=== PATIENT | male | born 1970 | race African-American/Black ===

== ENCOUNTER 2022-12-14 20:26 | Emergency (ER) | payer SELFPAY ==
[2022-12-14 21:02] LABS: ALT (SGPT) 32 U/L (8-55); AST (SGOT) 37 U/L (5-34); Albumin 4.1 g/dL (3.5-5.0); Alkaline Phosphatase 69 U/L (40-110); Anion Gap 17 mmol/L (10-20); BUN (Urea Nitrogen) 22 mg/dL (8.9-20.6); Bilirubin, Total 0.2 mg/dL (0.2-1.2); CK (CPK) 329 U/L (30-200); Calc. Creatinine Clearance 0 mL/min (70-130); Calcium 9.1 mg/dL (7.8-10.44); Carbon Dioxide 23 mmol/L (22-29); Chloride 105 mmol/L (98-107); Estimated GFR 64; Globulin 3.5 g/dL (2.4-3.5); Glucose 81 mg/dL (70-105); Potassium 3.5 mmol/L (3.5-5.1); Protein, Total 7.6 g/dL (6.0-8.3); Sodium 141 mmol/L (136-145)
[2022-12-14 21:03] LABS: Hemoglobin 11.8 g/dL (13.5-17.5); Mean Corpuscular HGB CONC 34.9 g/dL (32.0-36.0); Mean Corpuscular Hemoglobin 30.6 pg (27.0-33.0); Mean Corpuscular Volume 87.6 fl (81.2-95.1); Mean Platelet Volume 8.8 fl (7.4-10.4); Platelet Count 263 10x3/uL (150-450); Red Blood Cell (RBC) Count 3.86 10x6/uL (4.32-5.72)
[2022-12-14 21:08] LABS: MDiff Complete? YES; Manual Diff?? YES
[2022-12-14 21:32] LABS: Eosinophils 1 % (0-10); Lymphocytes 73 % (21-51); Monocytes 5 % (0-10); Neutrophil 12 % (42-75); Reactive Lymphocytes 9 % (0-10)
[2022-12-14 21:33] LABS: Diff Comment (RBC Morph SCRN) NORMAL; Platelet Morphology Comment Appears Adequate
== END 2022-12-14 21:36 | disposition home or self-care (01) ==
LOC: CSHERS 20:26
DX: F14.10 Cocaine abuse, uncomplicated (principal); F10.129 Alcohol abuse with intoxication, unspecified; F12.10 Cannabis abuse, uncomplicated; I11.0 Hypertensive heart disease with heart failure; I50.9 Heart failure, unspecified; F17.210 Nicotine dependence, cigarettes, uncomplicated; Y90.9 Presence of alcohol in blood, level not specified
CPT/HCPCS: 80053; 82550; 84484; 85025; 93005; 96360

== ENCOUNTER 2022-12-25 15:02 | Emergency (ER) | payer SELFPAY ==
[2022-12-25] MEDS ORDERED: Lidocaine 1% w/Epinephrine 1:200K 30 ML VIAL ONE (16:02)
[2022-12-25] MEDS ORDERED: Boostrix 0.5 ML (Tdap) VIAL (>/=7 yrs of age) ONE (16:02)
== END 2022-12-25 17:15 | disposition home or self-care (01) ==
LOC: CSHERS 15:02
DX: S01.511A Laceration without foreign body of lip, initial encounter (principal); I11.0 Hypertensive heart disease with heart failure; I50.9 Heart failure, unspecified; F17.210 Nicotine dependence, cigarettes, uncomplicated; Z23 Encounter for immunization; Y04.0XXA Assault by unarmed brawl or fight, initial encounter
CPT/HCPCS: 12051; 90471; 90715

== ENCOUNTER 2024-04-18 15:38 | Emergency (ER) | payer OTHER, SELFPAY ==
[2024-04-18] MEDS ORDERED: Lorazepam 2 MG/ML VIAL ONE (16:06)
[2024-04-18] MEDS ORDERED: Aspirin Chewable 81 MG TAB ONE (16:06)
[2024-04-18 16:46] LABS: #Basophils 0.02 10x3/uL (0.0-0.2); #Eosinphils 0.07 10x3/uL (0.0-0.5); #Monocytes 0.34 10x3/uL (0.0-1.1); #Neutrophils 1.36 10x3/uL (1.5-8.4); %Basophils 0.7 % (0.0-2.0); %Eosinophils 2.3 % (0.0-6.0); %Lymphocytes 40.8 % (18.0-47.0); %Monocytes 11.2 % (0.0-10.0); %Neutrophils 44.7 % (40.0-75.0); Hematocrit 34.4 % (38.8-50.0); Hemoglobin 11.8 g/dL (13.5-17.5); Mean Corpuscular HGB CONC 34.3 g/dL (32.0-36.0); Mean Corpuscular Hemoglobin 30.6 pg (27.0-33.0); Mean Corpuscular Volume 89.1 fL (81.2-95.1); Mean Platelet Volume 8.7 fL (7.4-10.4); Platelet Count 322 10x3/uL (150-450); RBC Distribution Width 12.5 % (11.5-14.5); Red Blood Cell (RBC) Count 3.86 10x6/uL (4.32-5.72)
[2024-04-18 17:03] LABS: ALT (SGPT) 26 U/L (8-55); AST (SGOT) 30 U/L (5-34); Albumin 3.5 g/dL (3.5-5.0); Alkaline Phosphatase 48 U/L (40-110); Anion Gap 13 mmol/L (10-20); BUN (Urea Nitrogen) 16 mg/dL (8.4-25.7); Bilirubin, Total 0.5 mg/dL (0.2-1.2); Calc. Creatinine Clearance 0 mL/min (70-130); Calcium 9.2 mg/dL (7.8-10.44); Carbon Dioxide 26 mmol/L (22-29); Chloride 106 mmol/L (98-107); Estimated GFR 90; Globulin 4.1 g/dL (2.4-3.5); Glucose 67 mg/dL (70-105); Potassium 3.8 mmol/L (3.5-5.1); Protein, Total 7.6 g/dL (6.0-8.3); Sodium 141 mmol/L (136-145)
[2024-04-18 17:09] LABS: Troponin I Less than 0.010 ng/mL (< 0.028)
== END 2024-04-18 19:33 | disposition home or self-care (01) ==
LOC: CSHERS 15:38
DX: F14.129 Cocaine abuse with intoxication, unspecified (principal); R07.89 Other chest pain; I11.0 Hypertensive heart disease with heart failure; I50.9 Heart failure, unspecified; Z59.00 Homelessness unspecified; F17.210 Nicotine dependence, cigarettes, uncomplicated
CPT/HCPCS: 71045; 80053; 84484; 85025; 93005; 96374; J2060